=== PATIENT | female | born 1965 | race Caucasian/White ===

== ENCOUNTER 2016-12-08 17:59 | Emergency (ER) ==
[2016-12-08 18:06] VITALS: BP 149/90
--- NOTE | 2016-12-08 18:19 | PROVIDER DOCUMENTATION ---
HPI-EENT General - General Chief Complaint: Sore Throat Stated Complaint: STREP THROAT, THROAT SWELLING Time Seen by Provider: 12/08/16 18:11 Source: patient Allergies/Adverse Reactions: Patient Allergies Allergy/AdvReac Type Severity Reaction Status Date / Time amantadine HCl * Allergy NAUSEA Verified 12/08/16 18:21 [From Symmetrel] propoxyphene HCl * Allergy Unknown Verified 12/08/16 18:21 [From Darvon] Home Medications: Home Medication List Medication Instructions Recorded Confirmed Last Taken Type Furosemide 40 mg PO DAILY 06/17/12 12/08/16 12/07/16 17:00 History Lovastatin 40 mg PO DAILY 06/17/12 12/08/16 12/07/16 17:00 History Aspirin [Lo-Dose Aspirin EC] 81 mg PO DAILY 12/08/16 12/08/16 12/07/16 17:00 History - History of Present Illness-EENT General Nature of Presenting Problem: This pt presents to ED with c/o sore throat and "swollen gland" x2 days. She reports she was seen by her doctor this morning and diagnosed with strep. Reports difficulty swallowing and says she has tried to suck on sour candy to "get the gland to pop" but she has had no relief. States this has happened before and sour candy is what provided relief. EENT Location: reports: throat Quality of Pain: reports: aching Severity: reports: moderate Onset/Duration: reports: 24 hours ago Timing: reports: still present Prearrival Treatment: Initiated prescription meds Associated Symptoms: reports: sore throat Similar Symptoms Previously?: Yes Recently seen or treated by another doctor?: Yes Review of Systems - Adult - REVIEW OF SYSTEMS - ADULT Constitutional: reports: no symptoms reported. denies: chills, fever Eyes: reports: no symptoms reported. denies: discharge, dry eyes Ears, Nose, Mouth & Throat: reports: throat pain. denies: ear discharge, ear pain Cardiovascular: reports: no symptoms reported. denies: chest pain, edema Respiratory: reports: no symptoms reported. denies: chronic cough, cough Gastrointestinal: reports: no symptoms reported. denies: abdominal pain, hematemesis Genitourinary: reports: no symptoms reported. denies: dysuria, discharge Musculoskeletal: reports: no symptoms reported. denies: bone pain, back pain Integumentary: reports: no symptoms reported. denies: hives, hair loss Neurological: reports: no symptoms reported. denies: ataxia, dizziness/vertigo Psychiatric: reports: no symptoms reported. denies: anxiety, anti-depressant use Endocrine: reports: no symptoms reported. denies: change in skin pigment, excessive sweating Hematologic/Lymphatic: reports: swollen lymph nodes (R anterior cervical). denies: blood clots, easy bruising Allergic/Immunologic: reports: no symptoms reported All Other Systems: Reviewed and Negative Past History - Adult - PAST MEDICAL HISTORY-ADULT Review of Records: reports: Old Records Reviewed, Nursing Assessment Review, Medications Reviewed, Social history reviewed & non-contributory. Major Childhood Illnesses: reports: denies history Cardiovascular: reports: denies history Respiratory: reports: denies history Gastrointestinal: reports: denies history Obstetrical/Gynecological: reports: denies history Genitourinary: reports: denies history Musculoskeletal: reports: denies history Neurological: reports: denies history Endocrine/Immune: reports: denies history Other Conditions: reports: denies history Physical Exam- EENT - Physical Exam EENT Initial Vital Signs Reviewed: Yes General Appearance: appears well, alert, no apparent distress Eye Exam: bilateral eye: normal inspection, PERRL, EOMI Ear Exam: bilateral ear: auricle normal, canal normal, TM normal Nasal Exam: normal inspection Throat Exam: normal mouth inspection, dental tenderness, pharynx tenderness Neck: non-tender, full range of motion, supple, lymphadenopathy (R anterior cervical) Respiratory: chest non-tender, lungs clear, normal breath sounds, no pleuratic chest pain, no respiratory distress, no accessory muscle use Cardiovascular: normal peripheral pulses, regular rate, rhythm, no edema, no gallop, no JVD, no murmur Abdominal Exam: normal bowel sounds, non tender, soft Back Exam: normal inspection, no CVA tenderness, no vertebral tenderness Extremity: normal range of motion, non-tender, normal gait, normal inspection Integumentary: normal color, normal turgor, warm/dry Neurologic: grossly normal, no motor/sensory deficits Psych/Mental Status: normal mood/affect, normal thought content, normal thought process, oriented x 3 Progress - PLAN OF CARE/RESULTS Progress/Plan/Lab Results: Orders Category Date Time Status Dexamethasone [Decadron] Med 12/08/16 18:34 Discontinued 10 mg IM NOW ONE Diphenhyramine/Al&mg Oh/Lido [Mbx Solution] Med 12/08/16 18:34 Discontinued 15 ml MT NOW ONE Vital Signs Temp Pulse Resp BP Pulse Ox 12/08/16 18:04 98.8 F 98 H 20 149/90 98 amantadine HCl * [From Symmetrel] Allergy (Verified 12/08/16 18:21) NAUSEA propoxyphene HCl * [From Darvon] Allergy (Verified 12/08/16 18:21) Unknown elevates Blood pressure Furosemide 40 mg PO DAILY 06/17/12 Lovastatin 40 mg PO DAILY 06/17/12 Aspirin [Lo-Dose Aspirin EC] 81 mg PO DAILY 12/08/16 Departure - Departure Time of Disposition Order: 18:41 DIAGNOSIS: Strep throat, Cervical lymphadenopathy Disposition: HOME 01 Certified Medical Emergency: Urgent Condition: Good Additional Instructions: Follow up with your primary care provider. Return to the ER for any new or worsening symptoms. ED Follow Up Instructions: You have been treated by a care provider in the Emergency Department. These instructions are being provided to you so you can have an understanding of how to care for yourself upon discharge. Upon discharge from the Emergency Department, you are responsible for making arrangements for follow-up care by a physician of your choice. Take all prescribed medications as directed. Return to the Emergency Department immediately for any new or worsening symptoms. You may call the Physician Referral phone number at [phone] to obtain a list of Physicians who are taking new patients. Referrals: Corey Moreland MD [Primary Care Provider] - Attestation - Physician/ EFREN Attestation Patient care was provided by Advanced Practice Provider:: Yes Advanced Practice Provider:: Jluis Samuel Advanced Practice Provider documentation review:: The Mid-level provider documentation, treatment plan and medical decision making was reviewed by the physician who agrees with all treatment and medical decision making by the MLP.
[2016-12-08] MEDS ORDERED: DECADRON IM ONE (18:34)
[2016-12-08] MEDS ORDERED: MBX SOLUTION MT ONE (18:34)
== END 2016-12-08 19:02 | disposition home or self-care (01) ==
LOC: ED 17:59
DX: J02.0 Streptococcal pharyngitis (principal); R59.0 Localized enlarged lymph nodes; R22.1 Localized swelling, mass and lump, neck; R13.10 Dysphagia, unspecified; Z79.82 Long term (current) use of aspirin; Z79.899 Other long term (current) drug therapy